=== PATIENT | female | born 2000 | race Caucasian/White ===

== ENCOUNTER 2018-07-07 16:05 | Emergency (ER) | payer MEDICAID, OTHER ==
[2018-07-07 16:23] VITALS: BP 129/72
--- NOTE | 2018-07-07 16:34 | EDPHY ---
H & P Time Seen by Provider: 07/07/18 16:15 HPI/ROS: This patient complains of right ear pain and sinus pain moderate to severe intensity, achy in nature after developing coryza earlier in the week. She reports partial improvement from ibuprofen. She has been taking Flonase steroid nasal spray in addition. She notes no other exacerbating factors except her facial pain worsens when she bends forward. She is accompanied by her mother and her boyfriend who drove her here by private vehicle. ROS: Constitutional: No fevers or chills HEENT: No sore throat. Pulmonary: Occasional cough that she attributes to postnasal drip. No dyspnea. No pleuritic pain. No hemoptysis Cardiovascular: No lightheadedness GI: No abdominal pain, nausea vomiting or diarrhea Integumentary: No skin rash Musculoskeletal: No myalgias 7 point review of symptoms is performed and otherwise negative with exception of pertinent positives and negatives listed in HPI and ROS Physical Exam: Physical Exam Vital signs are normal. General: No acute distress HEENT: Nose: Swollen nasal mucosa on examination of her nares with right more than left maxillary sinus tenderness to percussion. Ears: External canals and tympanic membranes are clear with clear effusion bilaterally. No erythema. Oropharynx: No erythema or exudates. No dysphonia. No drooling or stridor. Eyes: Pupils equal and react to light. Extraocular motions are intact. Neck: Supple with no meningismus. No lymphadenopathy Lungs: Clear to auscultation bilaterally with no rales, rhonchi or wheeze. No respiratory distress. Cardiac: Regular rate and rhythm with no murmur gallop or rub Skin: No rash or pallor. Neuro: Alert with no focal deficits noted. Initial differential diagnosis: Viral rhinosinusitis, bacterial sinusitis, serous otitis, seasonal allergies Constitutional: Initial Vital Signs Temperature (C) 37.1 C 07/07/18 16:17 Heart Rate 82 07/07/18 16:17 Respiratory Rate 16 07/07/18 16:17 Blood Pressure 129/72 H 07/07/18 16:17 O2 Sat (%) 97 07/07/18 16:17 O2 Delivery Mode Room Air Allergies/Adverse Reactions: No Known Allergies Allergy (Verified 07/07/18 16:16) Home Medications: Medication Instructions Recorded Albuterol Hfa Anes Only 07/07/18 Amoxicillin Trihydrate [Amoxil] 500 mg PO TID #30 cap 07/07/18 Diastat Acudial 07/07/18 Flonase Nasal [place] 07/07/18 Marjorie 28 Tablet 07/07/18 lamoTRIgine 07/07/18 MDM/Departure - [facility] ED Course/Re-evaluation: Discussion: This patient appears clinically well without evidence of sepsis, [place]E RUNNER infection or other red flag findings. Will cover her with Amoxil if she develops onset of fevers in addition to her current symptoms. I counseled in some detail regarding this plan. - Depart Disposition: Home, Routine, Self-Care Clinical Impression: Acute rhinosinusitis Serous otitis media Qualifiers: Chronicity: acute Laterality: right Recurrence: non-recurrent Qualified Code(s) : H65.01 - Acute serous otitis media, right ear Condition: Good Instructions: Amoxicillin (By mouth), Rhinosinusitis (ED), Serous Otitis Media (ED) Additional Instructions: Diagnosis: 1. Acute rhinosinusitis 2. Serous otitis Plan: Humidifier Ibuprofen-600 mg per 6 hr as needed for pain Tylenol in addition 650-1000 mg per 4 hr not to exceed 3000 mg in 24 hr If you developed fevers and dark nasal discharge in addition to current symptoms then start Amoxil antibiotic in addition. Follow-up with primary care physician for any symptoms that persist beyond the next week despite treatment plan Return for any significant worsening despite the treatment plan Prescriptions: Amoxicillin Trihydrate [Amoxil] 500 mg PO TID #30 cap Referrals: Emily Mendoza, LANNY [Primary Care Provider] - As per Instructions
== END 2018-07-07 16:39 | disposition home or self-care (01) ==
LOC: CED 16:05
DX: J34.89 Other specified disorders of nose and nasal sinuses (principal); H65.01 Acute serous otitis media, right ear
CPT/HCPCS: 99283-ER